=== PATIENT | female | born 1950 | race Caucasian/White ===

== ENCOUNTER 2024-10-28 09:45 | Day surgery (SDC) | payer MEDICARE, OTHER ==
[~2024-10-28] VITALS: Ht 165.1 cm; Wt 73.6 kg
[~2024-10-28 09:45] MED LIST: ACETAMINOPHEN500 M1 PO; AMBIEN5 MG PO; CEFAZOLIN SODIUM 2 GM/20 ML SYR IV SCH; COZAAR100 MG PO; HYDROCHLOROTH12.5 MG PO; IBLOOD GLUCOSE TEST STRIP 1 EA TEST VI PRN; LACTATED RINGER'S 1,000 ML IV SCH; LASIX20 MG PO; LEVOTHYROXINE50 MC1 PO; LIDOCAINE HCL 1% 5 ML SDV INJ ONE; LYRICA75 MG PO; METOPROLOL SUCC25 MG PO; NITROGLYCERIN0.4 MG SL; PRISTIQ ER25 MG PO
[2024-10-28 10:08] VITALS: BP 152/70
[2024-10-28] MEDS ORDERED: LIDOCAINE HCL 2% 5 ML SDV ONE (10:14)
[2024-10-28] MEDS ORDERED: DEXAMETHASONE SOD PHOS 4 MG/ML VIAL ONE ×2 (10:14→11:08)
[2024-10-28] MEDS ORDERED: propofoL 200 MG/20 ML VIAL ONE ×2 (10:14→11:08)
[2024-10-28] MEDS ORDERED: Ropivacaine HCl 0.5% 30 ML VIAL ONE (10:14)
[2024-10-28] MEDS ORDERED: DESVENLAFAXINE25 MG PO (10:16)
[2024-10-28] MEDS ORDERED: HYDROCODONE/ACETA 7.5/325 TAB PO PRN (10:45)
[2024-10-28] MEDS ORDERED: fentaNYL citrate 100 MCG/2 ML VIAL ONE (11:07)
[2024-10-28] MEDS ORDERED: ondansetron HCL 4 MG/2 ML VIAL ONE (11:08)
[2024-10-28] MEDS ORDERED: ePHEDrine sulfate 50 MG/ML AMP ONE (11:15)
[2024-10-28] MEDS ORDERED: HYDROCODON-ACE1 EA11 PO (11:51)
[2024-10-28] MEDS ORDERED: fentaNYL citrate 50 MCG/ML SDV IV PRN (12:15)
[2024-10-28] MEDS ORDERED: NALOXONE HCL 0.4 MG SYR IV PRN (12:15)
[2024-10-28] MEDS ORDERED: MEPERIDINE HCL 25 MG/1 ML VIAL IV PRN (12:15)
[2024-10-28] MEDS ORDERED: ondansetron HCL 4 MG/2 ML VIAL IV PRN (12:15)
[2024-10-28 12:17] VITALS: BP 122/64
--- NOTE | 2024-10-28 12:23 | NUR ---
1214- PT ARRIVES FROM PACU. PT DENIES PAIN AND NAUSEA. CALL LIGHT IN REACH AND BED IS LOCKED IN THE LOWEST POSITION. PT LEFT HAND IS NUMB, PT IS EDUCATED ABOUT BLOCK. LR INFUSING. VITAL SIGNS OBTAINED. PT REQUESTS WATER AND CRACKERS, THIS IS PROVIDED. DISCHARGE CRITERIA DISCUSSED AND PT IS UNDERSTANDING.
[2024-10-28 13:17] VITALS: BP 128/66
[2024-10-28] MEDS ORDERED: SEVOFLURANE 250 ML BTL INH ONE (13:17)
--- NOTE | 2024-10-28 13:20 | NUR ---
1315- PT WAS ABLE TO EAT AND DRINK. PT REPORTS THAT SHE WILL NEED TO USE THE RESTROOM SOON. VITAL SIGNS OBTAINED. DISCHARGE CRITERIA DISCUSSED AND QUESTIONS AND CONCERNS ANSWERED. PT L HAND IS WARM AND PINK, BUT IS STILL UNABLE TO MOVE THE EXTREMITY.
--- NOTE | 2024-10-28 14:34 | NUR ---
1335- PT IS ABLE TO AMBULATE TO THE RESTROOM. PT IS ABLE TO VOID 400 ML OF CONSENTRATED YELLOW, CLEAR URINE. PT IS ABLE TO RETURN TO ROOM WITH NO ASSISTANCE. 1345- PT IT ABLE TO GET DRESSED WITH NURSES ASSISTANCE. PT IS ABLE TO AMBULATE TO WHEELCHAIR. PT HAS ALL BELONGINGS AND EDUCATION. QUESTIONS AND CONCERNS ANSWERED. PT IS ABLE TO AMBULATE TO WHEELCHAIR AND IS DISCHARGED. PT IS ABLE TO GET INTO FAMILY VEHICLE WITH NO ISSUES.
--- NOTE | 2024-11-04 06:55 | OR ---
[facility] [address] [place], [place] [address] Signed DATE OF OPERATION: 10/28/2024 SURGEON: Tiffany Crook MD PREOPERATIVE DIAGNOSIS: Comminuted left distal radius fracture. POSTOPERATIVE DIAGNOSIS: Comminuted left distal radius fracture. PROCEDURE PERFORMED: Open reduction and internal fixation of left distal radius. CASTING MACHINE OPERATOR HELPER: Alea Brooks PA-C. Alea was present and critical for all portions of procedure. ANESTHESIA: General. BLOOD LOSS: None. TOURNIQUET TIME: 46 minutes. IMPLANTS: A small Chau DVR plate with seven screws. BRIEF HISTORY: Reese is a 73-year-old female who suffered a ground level fall fracturing the distal radius. Risks and benefits of operative treatment were discussed with her and she understands, wished to proceed. DESCRIPTION OF PROCEDURE: Once consent was obtained, she was taken to the operating room. After adequate anesthesia, she was placed on operating room table with a hand table. The arm was placed in well-padded proximal arm tourniquet and prepped and draped in the standard sterile fashion. The arm was exsanguinated using Esmarch bandage. Tourniquet inflated to 200 mmHg. Standard volar approach to the distal radius was undertaken. This was Electronically Signed By: TIFFANY CROOK MD 11/04/24 0655 PATIENT NAME: REESE MIX OPERATIVE REPORT DATE OF : 48 REPORT #: [id number] PHYSICIAN: TIFFANY CROOK MD PCP: WYATT TERRY REPORT IS CONFIDENTIAL AND NOT TO BE RELEASED WITHOUT AUTHORIZATION [facility] [address] [place], [place] [address] Signed taken through skin and subcutaneous tissue. The FCR was identified and the FCR sheath was entered. The FCR was then retracted ulnarly. The floor of the FCR sheath was opened and dissection was taken down to the pronator. The pronator was opened and elevated off the distal radius medially and laterally. This allowed visualization of the fracture which was then reduced and held with a K-wire. The small DVR plate was then fashioned to the volar side, aligned under image intensifier and held with two pins. Once this was properly aligned, one screw was placed in the proximal end of the plate and two screws were placed distally to hold the distal radius in position. After checking this with the image intensifier was found to be satisfactory. Three more distal screws were placed under locking conditions. Another proximal screw was placed. Final radiograph showed good screw placement, screw length and reduction. The wound was then copiously irrigated with normal saline. The pronator was closed back over the plate with 2-0 Monocryl. The floor of the FCR sheath was then closed with 2-0 Monocryl. Subcutaneous tissue with 3-0 Monocryl and the skin with 3-0 Stratafix. The wound was dressed with Allevyn and sterile gauze and a thumb spica splint. She tolerated the procedure well. All sponge, needle, and instrument counts correct. Tiffany Crook MD BA/MODL /[id number] Copies: ~ Electronically Signed By: TIFFANY CROOK MD 11/04/24 0655 PATIENT NAME: REESE MIX OPERATIVE REPORT DATE OF : 48 REPORT #: [id number] PHYSICIAN: TIFFANY CROOK MD PCP: WYATT TERRY REPORT IS CONFIDENTIAL AND NOT TO BE RELEASED WITHOUT AUTHORIZATION
== END 2024-10-28 13:45 | disposition home or self-care (01) ==
LOC: DS 09:45
PROVIDERS: ATTEND Specialist
PROC: 0PSJ04Z Reposition Left Radius with Internal Fixation Device, Open Approach (ICD-10-PCS; principal; 2024-10-28 11:30)
DX: S52.502A Unspecified fracture of the lower end of left radius, initial encounter for closed fracture (principal); I10 Essential (primary) hypertension; Z88.0 Allergy status to penicillin; Z88.8 Allergy status to other drugs, medicaments and biological substances; Z79.899 Other long term (current) drug therapy; W18.31XA Fall on same level due to stepping on an object, initial encounter
CPT/HCPCS: 01830; 64417; 73100; 76942; C1713; J0690; J1100; J2003; J2405; J2704; J2795; J3010; J7121